=== PATIENT | female | born 1955 | race Caucasian/White ===

== ENCOUNTER → 2017-09-02 | Outpatient (CLI) | payer OTHER ==
[~2017-09-02] MED LIST: ACID1TAB PO; ASPI-496 PO; Biotin PO; CHOL200040 PO; GLUC1TAB55 PO; LEVO50TA PO; MULT-257 PO; SIMV5TAB5 PO; TRAM-47 PO; UBID100C41 PO; VIT1CAPS10 PO; [UNRECOGNIZED DRUG - OTHER] PO
== END | disposition home or self-care (01) ==
LOC: CFH 09:39
PROVIDERS: ATTEND Family Medicine
DX: Z12.31 Encounter for screening mammogram for malignant neoplasm of breast (principal)
CPT/HCPCS: 77063; G0202

== ENCOUNTER → 2017-09-10 | Outpatient (CLI) | payer OTHER | END | disposition home or self-care (01) | LOC: CFH 11:30 | PROVIDERS: ATTEND Family Medicine | DX: Z13.820 Encounter for screening for osteoporosis (principal) | CPT/HCPCS: 77080 ==

== ENCOUNTER 2020-03-08 11:00 | Outpatient (CLI) | payer OTHER ==
[~2020-03-08 11:00] MED LIST changes: +OCUVITE SOFTGE1 EACH PO; +SIMV5TAB14 PO; -SIMV5TAB5 PO; -VIT1CAPS10 PO
== END 2020-03-08 23:59 | disposition home or self-care (01) ==
LOC: CFH 11:00
PROVIDERS: ATTEND Family Medicine
DX: Z12.31 Encounter for screening mammogram for malignant neoplasm of breast (principal); M85.9 Disorder of bone density and structure, unspecified; M81.0 Age-related osteoporosis without current pathological fracture
CPT/HCPCS: 77063; 77067; 77080